=== PATIENT | male | born 1990 | race Caucasian/White ===

== ENCOUNTER 2017-12-10 09:57 | Day surgery (SDC) | payer OTHER ==
[~2017-12-10 09:57] MED LIST: Buffered Lidocaine 0.9% SYRIN* 5 ML/SYR SYRINGE INTRADERM ONE
[2017-12-10] MEDS ORDERED: ceFAZolin 2 GM in NS PREMIX(*) 2 GM/100 ML BAG IVPB ONE (10:10)
[2017-12-10] MEDS ORDERED: Midazolam* 1 MG/ML 2 ML VIAL (2 MG) ONE (10:56)
[2017-12-10] MEDS ORDERED: Lidocaine 2% PF * 5 ML VIAL ONE (10:56)
[2017-12-10] MEDS ORDERED: fentaNYL* 50 MCG/ML 2 ML VIAL (100 MCG VIAL) ONE (10:56)
[2017-12-10] MEDS ORDERED: ROPIVACAINE 5 MG/ML 30 ML BTL (0.5%) ONE (11:22)
[2017-12-10] MEDS ORDERED: Ondansetron INJ* 2 MG/ML VIAL IV PRN (13:02)
[2017-12-10] MEDS ORDERED: Acetaminophen TAB* 325 MG PO PRN (13:02)
[2017-12-10] MEDS ORDERED: Naloxone* 0.4 MG/ML 1 ML VIAL IV PRN (13:02)
[2017-12-10] MEDS ORDERED: Ibuprofen TAB* 400 MG PO PRN (13:02)
[2017-12-10] MEDS ORDERED: fentaNYL* 50 MCG/ML 2 ML VIAL (100 MCG VIAL) IV PRN (13:02)
[2017-12-10] MEDS ORDERED: oxyCODONE TAB* 5 MG TAB PO PRN (13:02)
[2017-12-10] MEDS ORDERED: Ketorolac INJ* 30 MG/ML 1 ML VIAL ONE (13:41)
[2017-12-10] MEDS ORDERED: Ondansetron INJ* 2 MG/ML VIAL ONE (13:41)
[2017-12-10] MEDS ORDERED: Dexamethasone IV* 4 MG/ML 1 ML (4 MG) ONE (13:41)
[2017-12-10] MEDS ORDERED: oxyCODONE/Acetamin 5/325 MG* TAB ONE (14:23)
[2017-12-10 14:42] VITALS: BP 114/83
--- NOTE | 2017-12-11 05:31 | OP ---
DATE OF OPERATION: 12/10/17 - [facility] DATE OF : 89. SURGEON: Rob Bal MD. BEAM BUILDER: HEATHER Murillo. An video production assistant was needed for the procedure to aid in positioning of the arm and retraction. ANESTHESIOLOGIST: Dr. Najera. ANESTHESIA: General. 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 OPERATIVE PROCEDURE: Repair of right small finger Boutonniere deformity with central slip repair using 2 Micro Arthrex suture anchors and distal terminal extensor tendon tenotomy and lateral band relocation. 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 It is fairly severe but relatively subtle Boutonniere deformity, he lags just 10 degrees of extension at the PIP joint. We had talked about risks and benefits. He had wanted to proceed with surgical repair and he understands that there is a chance that he will have some extension lag at the DIP joint. He also understands the risk of stiffness in the joint. ESTIMATED BLOOD LOSS: 2 mL. COMPLICATIONS: None. FINDINGS: See above and below. DESCRIPTION OF PROCEDURE: Romario was seen in the preoperative holding area. The correct site, side and procedure were identified. We came back to the operating room. The arm was prepped and draped in the usual fashion. A time- out was performed. I made a curvilinear incision over the dorsum of the finger. A full thickness flap was raised off of the extensor mechanism. Significant amount of scar tissue was seen over the dorsum of the PIP joint. The transverse retinacular ligaments were released. The tenolysis was performed. I then did a distal torres tenotomy. Given the magnitude of the deformity, I thought it was almost certain to have the need to advance the central slip, so I went ahead and released the central slip off of its insertion on the base of the middle phalanx. There were some bone spurs that had grown there. I took these back to a nice flat point surface with a rongeur. I then drilled with a K-wire in placed 2 Micro Arthrex suture anchors. I then advanced the central slip and sewed it back down to the bone using the 2-0 FiberWire suture from the suture anchors. This was done with whip stitches. Once I had sewn the tendon back down to the bone, the repair was very nice and I went ahead and returned to the distal end of the central slip back to a nice flush edge. I then lastly relocated the sagittal bands dorsally and secured them in the dorsal position using a [id number] 4-0 Prolene sutures. The triangular ligament had been extremely attenuated and incompetent and this centralized the tendons very nicely dorsally. At this point, everything was looking good. So, we irrigated out the wounds, the skin was closed with 4-0 nylon suture. The wound was dressed with Xeroform , 4x4s, sterile Webril and then an ulnar gutter splint was applied in the intrinsic plus position holding the IP joints out straight. The tourniquet was deflated and the hand pinked up immediately. He was taken to the recovery room in stable condition. [id number] #: [id number] MTDD
== END 2017-12-10 14:47 | disposition home or self-care (01) ==
LOC: OREAST 09:57
PROVIDERS: ATTEND Orthopaedic Surgery Hand Surgery
DX: M20.021 Boutonniere deformity of right finger(s) (principal)
CPT/HCPCS: A9270-GY; C1713; J0690; J1100; J1885; J2250; J2405; J2795; J3010